=== PATIENT | male | born 1975 | race Asian ===

== ENCOUNTER 2018-03-15 07:35 | Emergency (ER) | payer OTHER ==
[~2018-03-15] VITALS: Ht 177.8 cm; Wt 59.9 kg
[2018-03-15 07:35] VITALS: TEMP 98.1
[~2018-03-15 07:35] MED LIST: ADLT ASA LOW81 MG PO; ATOR20TA2 PO; BENZ1TAB43 PO; BUSP5TAB2 PO; BUSPIRONE15 MG PEG; CHLO50TA22 PO; CLON0.5T36 PO; EMOLOIN22 TOP; FIBER-LAX PO; LACTSYP31 PO; LANS30TA PEG; LEXAPRO20 MG PO; LORA0.5T17 PO; LORA1TAB17 PO; METAMUCIL0.52 GM PEG; MULTIVITAMI3 PEG; OLANZAPINE10 M2 PO; OSMOLITE; PERCOCET1 TA3 PO; PHEN125S PEG; PHEN125S PO; RANI75SY3 PO; RANITIDINE 150150 MG PO; RIVADIS4 TOP; VALP250S3 PEG; VALPROIC A250 MG/5 M PO; [UNRECOGNIZED DRUG - OTHER] PO
[2018-03-15 09:27] LABS: PLATELET COUNT 227 K/uL (142-355)
[2018-03-15 09:34] LABS: POTASSIUM 4.5 mmol/L (3.6-5.2)
[2018-03-15 10:45] VITALS: BP 116/76
[2018-03-16] MEDS ORDERED: LANTISEPTI2 TOP (11:06)
[2018-03-16] MEDS ORDERED: PANTOPRAZOLE 40MG TA PO (11:06)
[2018-03-16] MEDS ORDERED: EMOLOIN22 TOP (11:06)
[2018-03-16] MEDS ORDERED: LACTSYP31 PO (11:06)
[2018-03-16] MEDS ORDERED: METAMUCIL0.52 GM PEG (11:06)
[2018-03-16] MEDS ORDERED: LORA2INJ21 IM (11:06)
[2018-03-16] MEDS ORDERED: MAGNSUS68 PO (11:06)
[2018-03-16] MEDS ORDERED: ATOR20TA2 PO (11:09)
[2018-03-16] MEDS ORDERED: 904272561 PO (11:09)
[2018-03-16] MEDS ORDERED: CHLO50TA22 PO (11:09)
[2018-03-16] MEDS ORDERED: CALC500T57 PO (11:09)
[2018-03-16] MEDS ORDERED: VALPROIC ACID10 ML PEG (11:09)
[2018-03-16] MEDS ORDERED: OLAN10INJ IM (11:09)
[2018-03-16] MEDS ORDERED: TYLENOL325 MG PO (11:09)
[2018-03-16] MEDS ORDERED: POTA20TA4 PO (11:09)
[2018-03-16] MEDS ORDERED: BUSP15TAB2 PO (11:09)
[2018-03-16] MEDS ORDERED: MULTTAB52 PO (11:09)
[2018-03-16] MEDS ORDERED: NITR100C56 PO (11:09)
[2018-03-16] MEDS ORDERED: ESCI10TA PO (11:09)
[2018-03-16] MEDS ORDERED: PHEN125S PO (11:09)
[2018-03-16] MEDS ORDERED: ASPI81TA4 PO (11:09)
[2018-03-16] MEDS ORDERED: HALO5INJ3 IM (11:09)
== END 2018-03-15 10:46 | disposition other institution (70) ==
LOC: ED 07:35
PROVIDERS: Emergency Medicine
DX: R41.82 Altered mental status, unspecified (principal); F28 Other psychotic disorder not due to a substance or known physiological condition
CPT/HCPCS: 36415; 80053; 85027; 99283

== ENCOUNTER 2018-07-20 22:00 | Emergency (ER) | payer OTHER ==
[~2018-07-20] VITALS: Ht 177.8 cm; Wt 68.0 kg
[~2018-07-20 22:00] MED LIST changes: +904272561 PO; +ASPI81TA4 PO; +BUSP15TAB2 PO; +CALC500T57 PO; +ESCI10TA PO; +HALO5INJ3 IM; +LANTISEPTI2 TOP; +LORA2INJ21 IM; +MAGNSUS68 PO; +MULTTAB52 PO; +NITR100C56 PO; +OLAN10INJ IM; +PANTOPRAZOLE 40MG TA PO; +POTA20TA4 PO; +TYLENOL325 MG PO; +VALPROIC ACID10 ML PEG
[2018-07-20 23:10] LABS: PLATELET COUNT 215 K/uL (142-355)
[2018-07-20 23:16] LABS: POTASSIUM 3.7 mmol/L (3.6-5.2)
[2018-07-21 00:29] VITALS: BP 120/74; TEMP 98.3
[2018-07-21] MEDS ORDERED: CHLO50TA22 PO (01:06)
[2018-07-21] MEDS ORDERED: MAGNSUS68 PO (01:11)
== END 2018-07-21 00:32 | disposition other institution (70) ==
LOC: ED 22:16
PROVIDERS: Internal Medicine
DX: F31.89 Other bipolar disorder (principal); F03.91 Unspecified dementia, unspecified severity, with behavioral disturbance; Z04.6 Encounter for general psychiatric examination, requested by authority
CPT/HCPCS: 36415; 80053; 85027; 93005; 99285

== ENCOUNTER 2018-09-06 21:11 | Emergency (ER) | payer OTHER ==
[~2018-09-06] VITALS: Ht 175.3 cm; Wt 60.8 kg
[~2018-09-06 21:11] MED LIST changes: +MAGN400T4 PO; +NICOTINE T14 MG/241 TD; +VITAMIN D50000 UNIT PO
[2018-09-06 21:43] LABS: PLATELET COUNT 250 K/uL (142-355)
[2018-09-06 21:48] LABS: POTASSIUM 4.1 mmol/L (3.6-5.2)
[2018-09-06 23:12] VITALS: BP 123/86; TEMP 97.9
[2018-09-06] MEDS ORDERED: CHLO50TA22 PO (23:35)
[2018-09-06] MEDS ORDERED: CEPHALEXIN500 MG PO (23:38)
[2018-09-06] MEDS ORDERED: [UNRECOGNIZED DRUG - CODE] PO (23:40)
== END 2018-09-06 23:14 | disposition other institution (70) ==
LOC: ED 21:11
PROVIDERS: Emergency Medicine
DX: F28 Other psychotic disorder not due to a substance or known physiological condition (principal); Z04.6 Encounter for general psychiatric examination, requested by authority
CPT/HCPCS: 36415; 80053; 81000; 85027; 93005; 99285

== ENCOUNTER 2020-08-22 16:43 | Emergency (ER) | payer OTHER ==
[~2020-08-22] VITALS: Ht 175.3 cm; Wt 83.0 kg
[~2020-08-22 16:43] MED LIST changes: +CEPHALEXIN500 MG PO; +DIVA125C PO; +[UNRECOGNIZED DRUG - CODE] PO
[2020-08-22 17:07] LABS: PLATELET COUNT 198 K/uL (142-355)
[2020-08-22 17:15] LABS: POTASSIUM 3.8 mmol/L (3.6-5.2)
[2020-08-22 18:15] VITALS: BP 150/84; TEMP 98.5
[2020-08-22] MEDS ORDERED: DECUBI-VITE PO (20:10)
[2020-08-22] MEDS ORDERED: DIVALPROEX SOD DR PO ×2 (20:26→20:28)
[2020-08-22] MEDS ORDERED: CVS OMEPRAZOLE20 M1 PO (20:49)
[2020-08-22] MEDS ORDERED: OYSCO 500 PO (20:51)
[2020-08-22] MEDS ORDERED: [UNRECOGNIZED DRUG - REMARK] PO (20:52)
[2020-08-22] MEDS ORDERED: FERRETTS325 MG PO (20:54)
[2020-08-22] MEDS ORDERED: ZIPR20CA PO (20:56)
[2020-08-22] MEDS ORDERED: HALO5TAB10 PO (20:57)
[2020-08-22] MEDS ORDERED: CHLORPROMAZINE100 MG PO ×2 (20:59→21:00)
[2020-08-22] MEDS ORDERED: MEDR10TA4 PO (21:17)
[2020-08-22] MEDS ORDERED: LOPERAMIDE HCL PO (21:20)
[2020-08-22] MEDS ORDERED: ONDA4TAB3 PO (21:22)
[2020-08-22] MEDS ORDERED: PHENYTOIN PO (21:35)
[2020-08-22] MEDS ORDERED: HM MAGNESIUM400 MG PO (21:38)
[2020-08-22] MEDS ORDERED: DIVALPROEX125 M1 PO (21:40)
[2020-08-22] MEDS ORDERED: LIPITOR20 MG PO (21:42)
[2020-08-29] MEDS ORDERED: ZIPR80CA PO (08:38)
[2020-08-29] MEDS ORDERED: DIVA125C PO (08:40)
[2020-08-29] MEDS ORDERED: PHEN125S PO (08:40)
[2020-08-29] MEDS ORDERED: DIVALPROEX500 MG PO (08:40)
[2020-09-24] MEDS ORDERED: PHEN125S PO (09:41)
[2020-09-24] MEDS ORDERED: ESCI10TA PO (09:42)
[2020-09-24] MEDS ORDERED: CHLO50TA22 PO (09:42)
== END 2020-08-22 18:15 | disposition other institution (70) ==
LOC: ED 16:43
PROVIDERS: Family Medicine
DX: R45.1 Restlessness and agitation (principal); R46.89 Other symptoms and signs involving appearance and behavior; F31.89 Other bipolar disorder; Z11.59 Encounter for screening for other viral diseases; Z04.6 Encounter for general psychiatric examination, requested by authority
CPT/HCPCS: 80053; 85027; 87635; 93005; 99283; 99285; U0003

== ENCOUNTER 2020-09-16 21:40 | Emergency (ER) | payer OTHER ==
[~2020-09-16] VITALS: Ht 175.3 cm; Wt 74.8 kg
[~2020-09-16 21:40] MED LIST changes: +CHLORPROMAZINE100 MG PO; +CVS OMEPRAZOLE20 M1 PO; +DECUBI-VITE PO; +DIVALPROEX SOD DR PO; +DIVALPROEX125 M1 PO; +DIVALPROEX500 MG PO; +FERRETTS325 MG PO; +HALO5TAB10 PO; +HM MAGNESIUM400 MG PO; +LIPITOR20 MG PO; +LOPERAMIDE HCL PO; +MEDR10TA4 PO; +ONDA4TAB3 PO; +OYSCO 500 PO; +PHENYTOIN PO; +ZIPR20CA PO; +ZIPR80CA PO; +[UNRECOGNIZED DRUG - REMARK] PO
[2020-09-16 22:16] LABS: PLATELET COUNT 202 K/uL (142-355)
[2020-09-16 22:23] LABS: POTASSIUM 4.2 mmol/L (3.6-5.2)
[2020-09-17 00:43] VITALS: BP 140/87; TEMP 98
[2020-09-24] MEDS ORDERED: PHEN125S PO (09:41)
[2020-09-24] MEDS ORDERED: CHLO50TA22 PO (09:42)
[2020-09-24] MEDS ORDERED: ESCI10TA PO (09:42)
== END 2020-09-17 00:45 | disposition other institution (70) ==
LOC: ED 21:45
PROVIDERS: Family Medicine
DX: F03.91 Unspecified dementia, unspecified severity, with behavioral disturbance (principal); Z11.59 Encounter for screening for other viral diseases; Z04.6 Encounter for general psychiatric examination, requested by authority
CPT/HCPCS: 36415; 80053; 85027; 87635; 93005; 99283; U0003

== ENCOUNTER 2022-04-23 11:32 | Emergency (ER) | payer OTHER ==
[~2022-04-23] VITALS: Ht 175.3 cm; Wt 68.7 kg
[2022-04-23 11:32] VITALS: BP 131/88; TEMP 97.6
[~2022-04-23 11:32] MED LIST changes: -CVS OMEPRAZOLE20 M1 PO; +OMEP20CA PO
[2022-04-23 12:32] LABS: POTASSIUM 3.4 mmol/L (3.6-5.2)
[2022-04-23 13:01] LABS: PLATELET COUNT 132 K/uL (142-355)
[2022-04-23] MEDS ORDERED: ASPI81TA4 PO ×2 (14:01→14:08)
[2022-04-23] MEDS ORDERED: ZYPREXA ZYDI5 MG PO (14:02)
[2022-04-23] MEDS ORDERED: PANTOPRAZOLE 40MG TA PO (14:03)
[2022-04-23] MEDS ORDERED: RIVADIS4 TOP (14:04)
[2022-04-23] MEDS ORDERED: TAMS0.4C PO (14:05)
[2022-04-23] MEDS ORDERED: TRAZ50TA36 PO (14:06)
[2022-04-23] MEDS ORDERED: [UNRECOGNIZED DRUG - MIXTURE] PO (14:10)
[2022-04-23] MEDS ORDERED: ESCI10TA PO (14:11)
[2022-04-23] MEDS ORDERED: DIVALPROEX500 M1 PO (14:14)
[2022-04-23] MEDS ORDERED: LEVE500T5 PO (14:16)
[2022-04-23] MEDS ORDERED: PHEN125S PO (14:16)
[2022-04-23] MEDS ORDERED: ZIPR80CA PO (14:17)
[2022-04-23] MEDS ORDERED: DIPH50IN INJ (14:21)
== END 2022-04-23 13:14 | disposition other institution (70) ==
LOC: ED 11:32
PROVIDERS: Family Medicine
DX: F28 Other psychotic disorder not due to a substance or known physiological condition (principal); R46.89 Other symptoms and signs involving appearance and behavior; Z11.52 Encounter for screening for COVID-19; Z04.6 Encounter for general psychiatric examination, requested by authority
CPT/HCPCS: 80053; 85027; 87635; 93005; 99283; U0003

== ENCOUNTER 2022-06-14 19:39 | Emergency (ER) | payer OTHER ==
[~2022-06-14] VITALS: Ht 160 cm; Wt 61.7 kg
[~2022-06-14 19:39] MED LIST changes: +ACET-206 PO; +ALBU90AE13 INH; +CHOL100034 PO; +DIPH50IN INJ; +DIVALPROEX500 M1 PO; +FERROUS SULF325 MG PO; +LEVE500T5 PO; +MIRALAX 17GM PAK PO; +MOTRIN 800 MG PO; +OLANZAPINE5 MG PO; +PHENYTOIN 125 MG/5 ML PO; +ROBITUSSIN DM SYRUP PO; +TAMS0.4C PO; +TRAZ50TA36 PO; +ZYPREXA ZYDI5 MG PO; +[UNRECOGNIZED DRUG - MIXTURE] PO
[2022-06-14 19:40] VITALS: BP 125/85; TEMP 98.7
[2022-06-14 20:33] LABS: PLATELET COUNT 223 K/uL (142-355)
[2022-06-14 20:42] LABS: POTASSIUM 3.7 mmol/L (3.6-5.2); SODIUM 137 mmol/L (136-145)
[2022-06-14] MEDS ORDERED: D31000 UNI1 PO (22:25)
[2022-06-14] MEDS ORDERED: HALO5INJ3 IM (22:27)
[2022-06-14] MEDS ORDERED: GUAIFENESIN/DEX1 LI2 PO (22:27)
[2022-06-14] MEDS ORDERED: IBU800 MG PO (22:28)
[2022-06-14] MEDS ORDERED: ESCITALOPRAM5 MG PO (22:29)
[2022-06-14] MEDS ORDERED: OLANZAPINE5 MG PO (22:31)
[2022-06-14] MEDS ORDERED: ZIPR80CA PO (22:34)
[2022-06-14] MEDS ORDERED: ALBU90AE13 INH (22:34)
[2022-06-14] MEDS ORDERED: MIRALAX17 GM PO (22:37)
== END 2022-06-14 21:40 | disposition home or self-care (01) ==
LOC: ED 19:39
PROVIDERS: Emergency Medicine Emergency Medical Services
DX: R46.89 Other symptoms and signs involving appearance and behavior (principal); Z11.52 Encounter for screening for COVID-19; Z04.6 Encounter for general psychiatric examination, requested by authority
CPT/HCPCS: 80053; 85027; 87635; 93005; 99283; U0003

== ENCOUNTER 2022-10-04 22:36 | Emergency (ER) | payer OTHER ==
[~2022-10-04] VITALS: Ht 170.2 cm; Wt 73.9 kg
[~2022-10-04 22:36] MED LIST changes: +D31000 UNI1 PO; +GUAIFENESIN/DEX1 LI2 PO; +IBU800 MG PO; +LACTULOSE PO; +MEDROXYPR AC10 MG PO; +MIRALAX17 GM PO; +OLANZAPINE10 MG PO; +SENNOSIDES (SE8.6 MG PO; -[UNRECOGNIZED DRUG - REMARK] PO
[2022-10-04 22:40] VITALS: TEMP 98.2
[2022-10-04 23:16] LABS: PLATELET COUNT 196 K/uL (142-355)
[2022-10-04 23:23] LABS: POTASSIUM 3.7 mmol/L (3.6-5.2)
[2022-10-05 01:30] VITALS: BP 116/63
[2022-10-05] MEDS ORDERED: MULTIVITAMI1 PO (07:31)
[2022-10-05] MEDS ORDERED: MIRTAZAPINE7.5 MG PO (07:32)
[2022-10-05] MEDS ORDERED: FERROUS SULF325 M1 PO (07:35)
[2022-10-05] MEDS ORDERED: HOUSE SUPPLEMENT PO (07:36)
[2022-10-05] MEDS ORDERED: ZYPREXA ZYDI10 MG PO (07:37)
[2022-10-05] MEDS ORDERED: ENSURE PO (07:38)
[2022-10-05] MEDS ORDERED: MILK OF MA400 MG/5 M PO (07:42)
[2022-10-05] MEDS ORDERED: OXYGEN (07:44)
[2022-10-05] MEDS ORDERED: TYLENOL325 MG PO (07:44)
== END 2022-10-05 01:30 | disposition still patient (30) ==
LOC: ED 22:36
PROVIDERS: Emergency Medicine Emergency Medical Services
DX: R46.89 Other symptoms and signs involving appearance and behavior (principal); R45.1 Restlessness and agitation; Z11.52 Encounter for screening for COVID-19; Z04.6 Encounter for general psychiatric examination, requested by authority
CPT/HCPCS: 36415; 80053; 85027; 87635; 93005; 99283; U0003